=== PATIENT | female | born 1995 | race Caucasian/White ===

== ENCOUNTER 2020-04-01 13:11 | Emergency (ER) | payer MEDICAID ==
[~2020-04-01] VITALS: Ht 165.1 cm; Wt 67.1 kg
[~2020-04-01 13:11] MED LIST: ALBU0.63 NEB; AMOX-291 PO; PREN1TAB60 PO
[2020-04-01 13:16] VITALS: BP 97/64
--- NOTE | 2020-04-01 13:38 | NUR ---
pt presents to ED seeking medication refill as she is inbetween primary care providers. pt states she is not short of breath at this time, denies any acute symptoms. pt seeking albuterol, symbicort and singulair refill. pt a&o, resps even and unlabored. spo2 monitoring in place. call light in reach. MICHEL Coombs at bedside.
--- NOTE | 2020-04-01 13:57 | NUR ---
REPORT FROM SIMONE PATEL. PT CARE RESPONSIBILITIES ASSUMED.
== END 2020-04-01 14:14 | disposition home or self-care (01) ==
LOC: ED 13:52
DX: J45.909 Unspecified asthma, uncomplicated (principal); Z76.0 Encounter for issue of repeat prescription; F17.200 Nicotine dependence, unspecified, uncomplicated
CPT/HCPCS: 99281

== ENCOUNTER 2020-06-04 20:35 | Emergency (ER) | payer BC, MEDICAID ==
[~2020-06-04] VITALS: Ht 165.1 cm; Wt 69.4 kg
--- NOTE | 2020-06-04 20:45 | NUR ---
[employer]: PT PROVIDED WITH URINE CUP AND EDUCATED ON HOW TO OBTAIN A URINE SAMPLE
[2020-06-04 21:00] LABS: MICROSCOPIC NOT IND
--- NOTE | 2020-06-04 21:14 | NUR ---
BARREL COOPER: PT. TO ROOM FROM LOBBY AT THIS TIME.
--- NOTE | 2020-06-04 21:21 | NUR ---
REPORTS EPIGASTRIC PAIN XMONTHS, C/O LOWER MID ABD "SHARP" PAIN X1 WK. PT STS IS , UNKNOWN HOW FAR ALONG. , 1 MISCARRIAGE. PT STS SHE IS "FOGGY" AND CAN'T THINK.
--- NOTE | 2020-06-04 21:28 | NUR ---
CALLED LAB REGARDING URINE SPECIMEN. WILL ADD ON DRUG SCREEN TO URINE.
[2020-06-04] MEDS ORDERED: SODIUM CHLORIDE 0.9% 1,000ML IVBOLUS ONE (21:30)
[2020-06-04] MEDS ORDERED: SODIUM CHLORIDE FLUSH 10ML SYR IVF ONE (21:30)
--- NOTE | 2020-06-04 21:36 | NUR ---
labs drawn piv est ivf infusing. plan for us. pt agrees w poc. call afia,. as
[2020-06-04 21:37] LABS: BASOPHILS # (AUTO) 0.02 x10^3/uL (0-0.1); BASOPHILS % (AUTO) 0 % (0-1); EOSINOPHILS # (AUTO) 0.34 x10^3/uL (0-0.4); EOSINOPHILS % (AUTO) 4 % (1-7); LYMPHOCYTES # (AUTO) 2.66 x10^3/uL (1-3.4); LYMPHOCYTES % (AUTO) 27 % (22-44); MD NO; MEAN CORPUSCULAR HEMOGLOBIN 31.6 pg (27.0-34.8); MEAN CORPUSCULAR HGB CONC 33.5 g/dL (32.4-35.8); MEAN CORPUSCULAR VOLUME 94.2 fL (80-100); MEAN PLATELET VOLUME 7.9 fL (7.4-10.4); MONOCYTES # (AUTO) 0.59 x10^3/uL (0.2-0.8); MONOCYTES % (AUTO) 6 % (2-9); NEUTROPHILS # (AUTO) 6.22 x10^3/uL (1.8-6.8); NEUTROPHILS % (AUTO) 63 % (42-75); PLATELET COUNT 256 x10^3/uL (130-400); RED BLOOD COUNT 3.82 x10^6/uL (3.82-5.3); RED CELL DISTRIBUTION WIDTH 13.5 % (9.6-15.2)
--- NOTE | 2020-06-04 21:45 | NUR ---
report to dimitri clinton. as
--- NOTE | 2020-06-04 21:46 | NUR ---
LATE ENTRY: BS REPORT FROM MIGUELANGEL NICHOLS. PT LAYING IN GURNEY, LIGHTS DIMMED FOR COMFORT, DENIES ADDITIONAL NEEDS AT THIS TIME, VSS, TUCKER, WCTM. WAITING FOR US.
[2020-06-04 21:47] LABS: ALANINE AMINOTRANSFERASE 22 U/L (12-78); ALBUMIN 3.1 g/dL (3.4-5.0); ANION GAP 6 mmol/L (5-15); CALCIUM 8.4 mg/dL (8.5-10.1); CHLORIDE 108 mmol/L (98-107)
[2020-06-04 21:49] LABS: AMPHETAMINE SCREEN, URINE Negative (Negative); BARBITURATE SCREEN, URINE Negative (Negative); BENZODIAZEPINE SCREEN, URINE Negative (Negative); CANNABINOID SCREEN, URINE Negative (Negative); COCAINE SCREEN, URINE Negative (Negative); METHADONE SCREEN, URINE Negative (Negative); OPIATE SCREEN, URINE Negative (Negative)
[2020-06-04 22:05] LABS: ALKALINE PHOSPHATASE 41 U/L (45-117); BILIRUBIN,TOTAL 0.2 mg/dL (0.2-1.0); CREATININE 0.55 mg/dL (0.55-1.02); TOTAL PROTEIN 6.7 g/dL (6.4-8.2)
--- NOTE | 2020-06-04 22:30 | NUR ---
PT TO US VIA ARACELIS, NO CHANGE IN CONDITION CURRENTLY, NAD, VSS
--- NOTE | 2020-06-04 23:11 | NUR ---
PT AMBULATED TO AND FROM RESTROOM WITH A SMOOTH AND STEADY GAIT. FRIEND AT BS. PT NAD, DENIES ANY ADDITIONAL NEEDS. WCTM. WAITING FOR US READ
[2020-06-05 00:11] VITALS: BP 98/62
--- NOTE | 2020-06-05 00:12 | NUR ---
Patient given discharge instructions and they have confirmed that they understand the instructions. Patient ambulatory with steady gait. NAD, VSS, P/W/D. PT QUESTIONS ANSWERED APPROPRIATELY. DENIES ADDITIONAL NEEDS AT THIS TIME. NO PT BELONGINGS LEFT IN ROOM AFTER DC.
== END 2020-06-05 00:14 | disposition home or self-care (01) ==
LOC: ED 22:00
DX: O26.891 Other specified pregnancy related conditions, first trimester (principal); R10.2 Pelvic and perineal pain; R10.10 Upper abdominal pain, unspecified; J45.909 Unspecified asthma, uncomplicated; F17.210 Nicotine dependence, cigarettes, uncomplicated; Z3A.01 Less than 8 weeks gestation of pregnancy
CPT/HCPCS: 36415; 76801; 80053; 80307; 81003; 84702; 85025; 86901; 99284; 99406; J7030

== ENCOUNTER 2020-09-06 14:11 | Outpatient (CLI) | payer MEDICAID ==
[~2020-09-06] VITALS: Ht 165.1 cm; Wt 73.6 kg
== END 2020-09-06 15:43 | disposition home or self-care (01) ==
LOC: LDOP 14:11
PROVIDERS: ATTEND Obstetrics & Gynecology Female Pelvic Medicine and Reconstructive Surgery
DX: O30.002 Twin pregnancy, unspecified number of placenta and unspecified number of amniotic sacs, second trimester (principal); O36.8120 Decreased fetal movements, second trimester, not applicable or unspecified; Z3A.20 20 weeks gestation of pregnancy
CPT/HCPCS: 76810; 76815; 99211; G0463

== ENCOUNTER 2020-10-08 20:42 | Outpatient (CLI) | payer MEDICAID ==
[2020-10-08 21:27] LABS: MICROSCOPIC INDICATED
== END 2020-10-08 21:35 | disposition home or self-care (01) ==
LOC: LDOP 20:42
PROVIDERS: ATTEND Obstetrics & Gynecology Female Pelvic Medicine and Reconstructive Surgery
DX: O26.892 Other specified pregnancy related conditions, second trimester (principal); R10.9 Unspecified abdominal pain; Z3A.24 24 weeks gestation of pregnancy
CPT/HCPCS: 81001; 87086; 99211; G0463

== ENCOUNTER 2020-11-01 08:51 | Outpatient (CLI) | payer MEDICAID ==
[~2020-11-01] VITALS: Ht 165.1 cm; Wt 79.0 kg
== END 2020-11-01 09:29 | disposition home or self-care (01) ==
LOC: LDOP 08:51
PROVIDERS: ATTEND Obstetrics & Gynecology Female Pelvic Medicine and Reconstructive Surgery
DX: Z34.93 Encounter for supervision of normal pregnancy, unspecified, third trimester (principal); Z3A.28 28 weeks gestation of pregnancy
CPT/HCPCS: 59025

== ENCOUNTER 2020-11-08 09:40 | Outpatient (CLI) | payer BC, MEDICAID | END 2020-11-08 11:17 | disposition home or self-care (01) | LOC: LDOP 09:40 | PROVIDERS: ATTEND Obstetrics & Gynecology Female Pelvic Medicine and Reconstructive Surgery | DX: O30.003 Twin pregnancy, unspecified number of placenta and unspecified number of amniotic sacs, third trimester (principal); Z3A.29 29 weeks gestation of pregnancy | CPT/HCPCS: 59025 ==

== ENCOUNTER → 2020-11-11 | Outpatient (CLI) | payer MEDICAID | END | disposition home or self-care (01) | LOC: LDOP 18:24 | PROVIDERS: ATTEND Obstetrics & Gynecology Female Pelvic Medicine and Reconstructive Surgery | DX: O26.893 Other specified pregnancy related conditions, third trimester (principal); R10.9 Unspecified abdominal pain; Z3A.29 29 weeks gestation of pregnancy | CPT/HCPCS: 99211; G0463 ==

== ENCOUNTER 2020-11-24 21:45 | Outpatient (CLI) | payer MEDICAID ==
[~2020-11-24] VITALS: Ht 165.1 cm; Wt 81.8 kg
[2020-11-24 22:11] VITALS: BP 106/68
== END 2020-11-24 22:52 | disposition home or self-care (01) ==
LOC: LDOP 21:45
PROVIDERS: ATTEND Obstetrics & Gynecology Female Pelvic Medicine and Reconstructive Surgery
DX: O42.913 Preterm premature rupture of membranes, unspecified as to length of time between rupture and onset of labor, third trimester (principal); Z3A.31 31 weeks gestation of pregnancy
CPT/HCPCS: 59025; 84112